=== PATIENT | female | born 1990 | race Two or more races ===

== ENCOUNTER 2024-11-03 13:07 | Observation (INO) | payer SELFPAY ==
[2024-11-03 13:10] VITALS: BMI 34.4
[2024-11-03 13:14] VITALS: BP 119/72; PULSE 61
--- NOTE | 2024-11-03 13:35 | XR_ITS ---
Examination: Biophysical profile, ultrasound Date and time of exam: November 03, 2024 1422 hours INDICATIONS: Decreased movement with pelvic contractions today Technique: Multiple transabdominal sonographic images of the pelvis abdomen obtained. Attention is directed to the breathing movement, gross body movement, amniotic fluid volume and tone. Findings: Amniotic fluid index 14.0 cm Total biophysical profile is 8 of 8. breathing movement is 2. Gross body movement is 2. tone is 2. Qualitative amniotic fluid volume is 2 Impression: Biophysical profile is 8 of 8.
== END 2024-11-03 15:30 | disposition home or self-care (01) ==
PROVIDERS: Admitting Provider Advanced Practice Midwife; Visit Provider Advanced Practice Midwife
DX: O36.8130 Decreased fetal movements, third trimester, not applicable or unspecified (principal); Z3A.38 38 weeks gestation of pregnancy
CPT/HCPCS: 59025; 59899; 76819

== ENCOUNTER 2024-11-04 12:09 | Observation (INO) | payer SELFPAY ==
[2024-11-04 12:17] VITALS: BP 119/72; PULSE 80
[2024-11-04 12:39] VITALS: BMI 34.7
[2024-11-04 12:44] LABS: ROM Kit Lot # 57805053; ROM Swab Mixed By: SAUCT; Rupture of Fetal Membranes Negative (Negative); Swb Mxed in Solvent 1 min? Yes
== END 2024-11-04 13:10 | disposition home or self-care (01) ==
PROVIDERS: Admitting Provider Obstetrics & Gynecology; Visit Provider Advanced Practice Midwife
DX: O26.853 Spotting complicating pregnancy, third trimester (principal); O26.893 Other specified pregnancy related conditions, third trimester; R25.2 Cramp and spasm; Z3A.38 38 weeks gestation of pregnancy
CPT/HCPCS: 59025; 59899; 84112

== ENCOUNTER 2024-11-09 22:02 | Inpatient (IN) | payer BC, MEDICAID, SELFPAY ==
[2024-11-09 22:05] VITALS: TEMP 36.9
[2024-11-09 22:30] VITALS: RESP 16
--- NOTE | 2024-11-09 22:32 | XR_ITS ---
Examination: age Limited Technique: Limited transabdominal sonographic images pelvis Exam date and time: November 09, 2024 1122 hrs. Indications: Pelvic contractions beginning 1900 hrs. Today, mild vaginal leaking, labor evaluation, unknown presentation Findings: Viable intrauterine gestation cephalic presentation spine anterior Cardiac motion 164 BPM Impression: Viable intrauterine gestation cephalic presentation
[2024-11-09 22:44] VITALS: BMI 35.2
[2024-11-09 23:00] VITALS: BP 109/71; PULSE 95
[2024-11-09] MEDS: SODIUM CHLORIDE 0.9% 1000 ML 1,000 ML 100 ML IV (23:17)
[2024-11-09 23:22] LABS: Basophils % (Auto) 0 % (0-2.5); Eosinophils # (Auto) 0.1 Thou/mm3 (0.0-0.5); Eosinophils % (Auto) 1 % (0-10); Hematocrit 34.7 % (36.0-46.0); Hemoglobin 11.5 g/dL (12.0-16.0); Immature Granulocytes % (Auto) 1 % (0-0); Immature Granulocytes Auto 0.04 Thou/mm3 (0.00-0.00); Lymphocytes # (Auto) 0.9 Thou/mm3 (1.0-4.8); Lymphocytes % (Auto) 14 % (10-50); Mean Corpuscular HGB Conc 33.1 g/dl (31.0-37.0); Mean Corpuscular Hemoglobin 29.2 pg (25.0-35.0); Mean Corpuscular Volume 88 fL (80-100); Monocytes # (Auto) 0.7 Thou/mm3 (0.0-0.8); Monocytes % (Auto) 11 % (0-12); Neutrophils % (Auto) 74 % (37-80); Nucleated Red Blood Cell % 0 /100 WBC (0); Platelet Count 170 Thou/mm3 (140-440); RDW Standard Deviation 44.4 fL (36.4-46.3); Red Blood Count 3.94 Miln/mm3 (4.00-5.20); White Blood Count 6.8 Thou/mm3 (3.6-11.0)
[2024-11-09 23:27] LABS: ROM Kit Lot # 57804194; ROM Swab Mixed By: CARMP2; Rupture of Fetal Membranes Positive (Negative); Swb Mxed in Solvent 1 min? Yes
[2024-11-09 23:32] VITALS: BP 100/58; PULSE 83
[2024-11-10] VITALS (33 sets, daily range): BP systolic 0–134; BP diastolic 0–81; PULSE 67–97; RESP 15–19; TEMP 36.8–37.4; O2SAT 97–99
[2024-11-10 02:53] LABS: Syphilis Nonreactive (Nonreactive)
[2024-11-10] MEDS: OXYTOCIN in NS 30 units 30 UNIT/500 ML BAG IV (04:38)
[2024-11-10] MEDS: fentaNYL CIT INJ 50 mCg/ML AMP 2ML 100 MCG IV (05:31)
[2024-11-10] MEDS: MISOPROSTOL 200 mCg TABLET 800 MCG PR (06:13)
[2024-11-10] MEDS: IBUPROFEN TAB 400 MG TABLET 800 MG PO ×2 (06:50→23:59)
[2024-11-10] MEDS: TRANEXAMIC ACID 1,000 MG IVPB 1,000 MG/100 ML BAG 200 MG IV (06:50)
--- NOTE | 2024-11-10 06:52 | PD.LDHP ---
Documentation for date of: 11/10/24 OB Labor/Induct. HPI History of Present Illness Chief complaint: leaking : 5 Para: 4 Term pregnancies: 4 pregnancies: 0 Living children: 4 History of Abortions: Spontaneous and Elective: 0 History of Vaginal deliveries: 4 History of sections: No History of : No Date of last menstrual period: 02/07/24 EUNICE: 11/13/24 Gestational Age (weeks): 39 Gestational Age (days): 4 Gestational age based on last menstrual period: 39 History of present illness: 34-year-old 5 para 4 admit to labor and delivery with complaints of leaking since 110 yesterday. And labor started at 2200. She has been followed at [facility] care. First visit 8 weeks 6. Last period February 07, 2024. Estimated due date November 13, 2024. First ultrasound was in July. Patient is 22 weeks and is confirmed dates. Patient had a follow-up ultrasound for growth and that also showed normal anatomy and normal growth. Denies social habits. Denies surgery. Denies chronic illness. Patient is O+, antibody screen negative, RPR nonreactive, rubella immune, hepatitis B-, hep C negative, HIV negative, GC and Chlamydia were negative. GBS negative. She had a normal NIPT and AFP. And carrier screens were negative History of Present Dating criteria: LMP confirmed by 1st trimester US Adequate Care: Yes Ultrasounds: normal 1st trimester US and normal mid trimester US Obstetrical complications: none Medical complications: none Labs Labs: Negative: Hepatitis B, HIV, Chlamydia, Gonorrhea and Group Beta Strep Review of Systems Review of Systems Systems Reviewed: All systems reviewed, normal except as documented Past Medical History Surgical History SURGICAL: Negative Section Meds Home Medications and Allergies Home Medications ?Medication ?Instructions ?Recorded ?Confirmed ?Type vit no.95-ferrous 1 tab PO QDAY 11/03/24 11/10/24 History fumarate 28 mg-folic acid 800 mcg tablet () Allergies Allergy/AdvReac Type Severity Reaction Status Date / Time No Known Allergies Allergy Verified 11/10/24 01:03 OB Exam Physical Exam Vital signs: Temp Pulse Resp BP 98.4 F 81 16 112/63 11/09/24 22:05 11/10/24 06:37 11/09/24 22:30 11/10/24 06:37 Narrative: Normal heart rate and rhythm. Lungs clear no wheezes. Gravid abdomen. Gynecoid pelvis. Estimated weight 7 pounds 10 ounces. Vaginal exam on admission was 70%, 4-5, -3. Vertex. Positive AmniSure. heart category 1 with accelerations and moderate variability and contractions were about every 4 to 5 minutes Detailed Labor and Delivery Exam Dilation (cm): 4-5 Effacement (%): 70 Cervix position: mid station: -3 Consistency: soft Presentation: Vertex Cervical ripeness score: 8 Membranes: ruptured Amniotic fluid: clear Baseline heart rate: 130 monitor accelerations: 15x15 monitor decelerations: None MCFP variability: Moderate (11-25) Contraction frequency (min): 4-5 Contraction duration (sec): 25 Tachysystole: Yes Contraction intensity: Moderate OB Results Labs 11/09/24 22:52 Labs: Short CBC 11/09/24 Range/Units 22:52 WBC 6.8 (3.6-11.0) Thou/mm3 Hgb 11.5 L (12.0-16.0) g/dL Hct 34.7 L (36.0-46.0) % Plt Count 170 (140-440) Thou/mm3 Impressions Impression: labor OB Assessment & Plan Assessment and Plan (1) Normal labor and delivery: Status: Acute Additional Plan Induction method: none Plan: anticipate NVD and consult MD connors
[2024-11-10] MEDS: OXYTOCIN in NS 20 units 20 UNIT/1,000 ML BAG 125 UNIT IV (07:00)
--- NOTE | 2024-11-10 07:03 | PD.LDDELS ---
Data (Strauss) Data Hx Section: No : 5 Para: 4 Term: 4 : 0 : 0 Delivery Data (Strauss) Labor Data Stimulated/Augmented: Yes Induction: No Method: Oxytocin ROM Date: 11/09/24 ROM Time: 13:00 Rupture Type: SROM Amniotic Fluid: Clear Delivery Data EDC: 11/13/24 EDC calculated by:: LMP/early US confirmation Labor Onset Stage 1 Date: 11/10/24 Labor Onset Stage 1 Time: 23:00 Labor Onset Stage 2 Date: 11/10/24 Labor Onset Stage 2 Time: 06:45 Delivery Date: 11/10/24 Delivery Time: 06:09 Gestational age (weeks): 39 Gestational age (days): 4 Placenta Delivery Date: 11/10/24 Placenta Delivery Time: 06:12 Delivered by: Renata Shirley Delivery nurse: Tatum Frye Other staff at delivery: Nursery Nurse Other staff at delivery: Other staff at delivery: Jocelyne Goel Other staff at delivery: owen Delivery Method Delivery: Vaginal Delivery Type: Spontaneous Presentation: Vertex Position: OA Anesthesia Type Primary Anesthesia: None Delivery Room Medications Intrapartum Medications: Tocolytics Post Delivery Medications: Tocolytics and Cytotec Post Delivery Medications N/A: No Placenta Placenta Delivery: Spontaneous (placenta inspected, intact, trailing membranes complete) Placenta Cultures Obtained: No Placenta Sent for Examination: Yes Cord Sample: Cord Blood Obtained Episiotomy Episiotomy: None (intact) EBL Estimated blood loss (ml): 350 Umbilical Cord Umbilical Vessels: 3 Nuchal Cord: None Body Cord: None (loop of cord at shoulder) [place] Data ([facility]uss) [place] Data Infant Gender: Male Infant Weight Grams: 3530 1 Minute Total: 9 5 Minute Total: 9
[2024-11-10] MEDS: BENZO/LANO/ALOE (Dermoplast) 60 GM CAN 1 SPRAY TOP (07:34)
[2024-11-10 16:43] LABS: Basophils % (Auto) 0 % (0-2.5); Eosinophils % (Auto) 0 % (0-10); Hematocrit 33.4 % (36.0-46.0); Hemoglobin 11.2 g/dL (12.0-16.0); Immature Granulocytes % (Auto) 1 % (0-0); Immature Granulocytes Auto 0.06 Thou/mm3 (0.00-0.00); Lymphocytes # (Auto) 1.1 Thou/mm3 (1.0-4.8); Lymphocytes % (Auto) 9 % (10-50); Mean Corpuscular HGB Conc 33.5 g/dl (31.0-37.0); Mean Corpuscular Hemoglobin 29.9 pg (25.0-35.0); Mean Corpuscular Volume 89 fL (80-100); Monocytes # (Auto) 0.9 Thou/mm3 (0.0-0.8); Monocytes % (Auto) 8 % (0-12); Neutrophils # (Auto) 9.6 Thou/mm3 (1.8-7.7); Neutrophils % (Auto) 82 % (37-80); Nucleated Red Blood Cell % 0 /100 WBC (0); Platelet Count 155 Thou/mm3 (140-440); RDW Standard Deviation 44.4 fL (36.4-46.3); Red Blood Count 3.74 Miln/mm3 (4.00-5.20); White Blood Count 11.7 Thou/mm3 (3.6-11.0)
[2024-11-10] MEDS: ACETAMINOPHEN 325 MG TABLET 650 MG PO (20:15)
[2024-11-11 01:16] VITALS: TEMP 36.8
[2024-11-11 04:49] VITALS: BP 107/69; PULSE 60; RESP 15; TEMP 36.6; O2SAT 98
--- NOTE | 2024-11-11 07:59 | ESPR_ITS ---
Subjective Subjective Interval history: No complaints of pain. No dizziness. Bonding and breast-feeding Exam Vital Signs Temp Pulse Resp BP Pulse Ox O2 Del Method 97.8 F 60 15 107/69 98 Room Air 11/11/24 04:49 11/11/24 04:49 11/11/24 04:49 11/11/24 04:49 11/11/24 04:49 11/11/24 04:49 Narrative Exam Vital signs stable afebrile. Breasts are soft. Fundus firm below the umbilicus. Perineum intact no swelling. Small lochia. Uterus well involuted. Negative Homans' sign. 2+ DTRs. No redness of or phlebitis Objective Labs 11/10/24 16:27 Labs: Laboratory Results - last 24 hr 11/10/24 16:27 WBC 11.7 H D RBC 3.74 L Hgb 11.2 L Hct 33.4 L MCV 89 MCH 29.9 MCHC 33.5 RDW Std Deviation 44.4 Plt Count 155 Neut % (Auto) 82 H Lymph % (Auto) 9 L [place] % (Auto) 8 Eos % (Auto) 0 Baso % (Auto) 0 Neut # (Auto) 9.6 H Lymph # (Auto) 1.1 [place] # (Auto) 0.9 H Eos # (Auto) 0.0 Baso # (Auto) 0.0 Immature Gran # (Auto) 0.06 H Absolute Nucleated RBC 0.00 Immature Gran % 1 H Nucleated RBC % 0 Assessment & Plan Problem List (1) Normal labor and delivery: Status: Acute Assessment Comment Assessment comment: 24 hr pp Plan Comment Plan Comment: Discharge home with baby. Continue vitamins and iron. Tylenol ibuprofen for pain. Danger signs. Return in 3 weeks visit. Discussed ER precautions and parameters given. Discussed signs and symptoms of infection. Time Spent With Patient Time: Total time spent is greater than 50% in coordination of care (as documented) at patient's floor/unit and/or counseling patient:
[2024-11-11 08:00] VITALS: BP 112/69; PULSE 76; RESP 16; TEMP 36.4; O2SAT 98
--- NOTE | 2024-11-11 08:00 | PD.LDDS ---
DS: Providers Provider Date of admission: 11/09/24 22:23 Primary care physician: César Landa MD Admitting Provider: Latrell Washington MD Attending Provider on Admission: Yao Castle MD Consults: 11/10/24 07:28 Referral Routine Comment: Attending Provider on DC: Renata Shirely CNM Discharging Provider: Renata Shirley CNM DS: Diagnosis Problem List Completed Was Problem List Reviewed/Reconciled?: Yes Summary/Hosp Course Brief History: 34-year-old 5 para 4 admit to labor and delivery with complaints of leaking since 110 yesterday. And labor started at 2200. She has been followed at [facility] care. First visit 8 weeks 6. Last period February 07, 2024. Estimated due date November 13, 2024. First ultrasound was in July. Patient is 22 weeks and is confirmed dates. Patient had a follow-up ultrasound for growth and that also showed normal anatomy and normal growth. Denies social habits. Denies surgery. Denies chronic illness. Patient is O+, antibody screen negative, RPR nonreactive, rubella immune, hepatitis B-, hep C negative, HIV negative, GC and Chlamydia were negative. GBS negative. She had a normal NIPT and AFP. And carrier screens were negative Peripartum Data Delivery Method: Normal Vaginal Delivery Episiotomy Description: None Laceration Description: no Time Spent with Patient Time attestation: Total time spent providing and/or coordinating discharge services: Exam Vital Signs Temp Pulse Resp BP Pulse Ox O2 Del Method 97.8 F 60 15 107/69 98 Room Air 11/11/24 04:49 11/11/24 04:49 11/11/24 04:49 11/11/24 04:49 11/11/24 04:49 11/11/24 04:49 Discharge Plan Plan Patient Disposition: HOME (Self Care) Patient condition on transfer: Stable Prescriptions/Referrals Prescriptions/Med Rec: New ibuprofen 400 mg Tablet 800 mg PO Q8H PRN (Reason: See Comments) 10 Days Qty: 40 0RF docusate sodium 100 mg Capsule 100 mg PO BID 30 Days Qty: 30 0RF hydrocodone-acetaminophen 5-325 mg tablet 1 tab PO Q6H MDD 4 PRN (Reason: pain) 5 Days Qty: 20 0RF Continued PNV cmb#95-ferrous fumarate-FA [] 28 mg iron- 800 mcg tablet 1 tab PO QDAY Patient Comments: TAKE 1 TABLET BY MOUTH ONCE DAILY Referrals: César Landa MD [Primary Care Provider] - Yao Castle MD [Physician] - Patient/Caregiver Discharge Instructions Meds to Beds: Yes Discharge Activity: activity as tolerated and resume usual activities Education Materials: After a Vaginal , After Delivery [place] Concerns, Breast Care After , Incision Care After Vaginal , Nutrition While , Understanding Depression, : Caring for Yourself, Feel Healthy After Print Language: Indonesian Activity Restrictions/Additional Instructions: Discharge home with baby today. Continue vitamins and iron. Tylenol ibuprofen for pain. Discussed danger signs and symptoms. Discussed ER precautions parameters given. Discussed signs symptoms of infection. Increase fluids. Rest. Return in 3 weeks visit Stand Alone Forms: Maranda Award Info., Patient Portal Info Letter Discharge Order Discharge Orders: Discharge (Routine); Ordered 11/11/24 Ordered By: Renata Shirley Planned Discharge Date 11/11/24
[2024-11-11] MEDS: DOCUSATE SOD 100 MG CAPSULE PO (08:32)
--- NOTE | 2024-11-11 08:46 | PD.LDPPPRG ---
Subjective Subjective Interval history: Delivery type: Patient doing well this morning. No acute complaints. Ambulating, tolerating p.o. and voiding without difficulty. HTN/Pre-Eclampsia screen: No chest pain, shortness of breath, headache, visual changes, epigastric or right upper quadrant pain. Breast-feeding, lochia diminishing. Bowel: Flatus+/ BM+ Exam Vital Signs Temp Pulse Resp BP Pulse Ox O2 Del Method 97.6 F 76 16 112/69 98 Room Air 11/11/24 08:00 11/11/24 08:00 11/11/24 08:00 11/11/24 08:00 11/11/24 08:00 11/11/24 08:00 Constitutional Constitutional: no acute distress Routine HEENT Exam Head: Present normocephalic and atraumatic Eye: Present EOMI and PERRL ENT: Present mucous membranes moist Routine Neck Exam Neck: Present supple and trachea midline Routine Respiratory Exam Respiratory: Present chest non-tender, lungs clear, normal breath sounds and no resp distress Routine Cardiovascular Exam Cardiovascular: Present RRR Routine Abdominal Exam Abdominal: Present soft and normoactive bowel sounds Routine Extremities Exam Extremities: Present full ROM Routine Skin Exam Skin: Present intact, dry and warm Routine Neurological Exam Neurological: Present alert, oriented X3 and CN II-XII intact Routine Psychiatric Exam Psychiatric: Present normal affect and normal thought process Objective Labs 11/10/24 16:27 Labs: Laboratory Results - last 24 hr 11/10/24 16:27 WBC 11.7 H D RBC 3.74 L Hgb 11.2 L Hct 33.4 L MCV 89 MCH 29.9 MCHC 33.5 RDW Std Deviation 44.4 Plt Count 155 Neut % (Auto) 82 H Lymph % (Auto) 9 L [place] % (Auto) 8 Eos % (Auto) 0 Baso % (Auto) 0 Neut # (Auto) 9.6 H Lymph # (Auto) 1.1 [place] # (Auto) 0.9 H Eos # (Auto) 0.0 Baso # (Auto) 0.0 Immature Gran # (Auto) 0.06 H Absolute Nucleated RBC 0.00 Immature Gran % 1 H Nucleated RBC % 0 Assessment & Plan Problem List (1) Normal labor and delivery: Status: Acute (2) delivery delivered: Status: Acute Assessment and plan: PPD/POD#2 1. Continue routine care 2. Transition to PO meds. 3. Encourage to ambulate/ breast-feed 4. Anticipate discharge home today. Time Spent With Patient Time: Total time spent is greater than 50% in coordination of care (as documented) at patient's floor/unit and/or counseling patient:
== END 2024-11-11 12:22 | disposition home or self-care (01) | DRG 807 ==
LOC: S4SX 11-10 05:39 → S4NX 11-10 11:46
PROVIDERS: Advanced Practice Midwife; Admitting Provider Obstetrics & Gynecology; PCP Family Medicine; Visit Provider Obstetrics & Gynecology
DX: O42.02 Full-term premature rupture of membranes, onset of labor within 24 hours of rupture (principal); Z37.0 Single live birth; Z3A.39 39 weeks gestation of pregnancy
CPT/HCPCS: 36415; 59025; 59409; 76815; 84112; 85025; 86780; 86850; 86900; 86901; J2590; J3010; J3490; J7030; S0191; A9270

== ENCOUNTER → 2025-03-25 | Outpatient (CLI) | payer BC, MEDICAID, SELFPAY ==
[2025-03-25 12:58] LABS: Basophils % (Auto) 1 % (0-2.5); Eosinophils # (Auto) 0.1 Thou/mm3 (0.0-0.5); Eosinophils % (Auto) 2 % (0-10); Hematocrit 38.3 % (36.0-46.0); Hemoglobin 12.7 g/dL (12.0-16.0); Immature Granulocytes % (Auto) 0 % (0-0); Immature Granulocytes Auto 0.01 Thou/mm3 (0.00-0.00); Lymphocytes # (Auto) 1.7 Thou/mm3 (1.0-4.8); Lymphocytes % (Auto) 32 % (10-50); Mean Corpuscular HGB Conc 33.2 g/dl (31.0-37.0); Mean Corpuscular Hemoglobin 28.9 pg (25.0-35.0); Mean Corpuscular Volume 87 fL (80-100); Monocytes # (Auto) 0.4 Thou/mm3 (0.0-0.8); Monocytes % (Auto) 7 % (0-12); Neutrophils % (Auto) 58 % (37-80); Nucleated Red Blood Cell % 0 /100 WBC (0); Platelet Count 249 Thou/mm3 (140-440); Red Blood Count 4.39 Miln/mm3 (4.00-5.20); White Blood Count 5.2 Thou/mm3 (3.6-11.0)
[2025-03-25 13:07] LABS: HCG,Qualitative Serum Negative
[2025-03-25 13:11] LABS: Iron 85 mcg/dL (50-170)
[2025-03-25 13:13] LABS: Alanine Aminotransferase 12 U/L (10-49); Albumin, Serum 4.5 gm/dL (3.5-5.0); Albumin/Globulin Ratio 1.5 (1.2-2.2); Alkaline Phosphatase 109 U/L (46-116); Anion Gap 5 (7-16); Aspartate Amino Transferase 12 U/L (0-34); BUN/Creatinine Ratio 21 Ratio (12-20); Bilirubin,Total 0.5 mg/dL (0.3-1.2); Blood Urea Nitrogen 15 mg/dL (9-23); Calcium 9.1 mg/dL (8.3-10.6); Calcium (Corrected) 9.1 mg/dL (8.5-10.1); Carbon Dioxide 27.6 mMol/L (20.0-31.0); Chloride 109 mMol/L (98-107); Creatinine (Component) 0.7 mg/dL (0.6-1.3); Glucose 84 mg/dL (74-106); Osmolality,Calculated 282 (275-295); Sodium 142 mMol/L (136-145); Thyroid Stimulating Hormone 0.98 uIU/mL (0.55-4.78); Total Protein 7.5 gm/dL (5.7-8.2); eGFR > 60 See Note
[2025-03-25 13:14] LABS: Vitamin B12 494 pg/mL (211-911); Vitamin D 25 Hydroxy Total 22.3 ng/mL (7.3-40.2)
== END | disposition home or self-care (01) ==
LOC: COPL 11:52
PROVIDERS: PCP Nurse Practitioner Family; Referring Provider Nurse Practitioner Family; Visit Provider Nurse Practitioner Family
DX: R53.83 Other fatigue (principal)
CPT/HCPCS: 36415; 80053; 82306; 82607; 83540; 84443; 84703; 85025